=== PATIENT | female | born 1975 | race Caucasian/White ===

== ENCOUNTER → 2020-05-13 | Outpatient (CLI) | payer BC, OTHER ==
[~2020-05-13] MED LIST: ACETAMINOPHEN500 MG PO; AZO URINARY P99.5 MG PO; BACTRIM DS TAB1 EACH PO; BREO ELLIPTA 11 EACH INH; CATAPRES 0.1MG0.1 MG PO; COGENTIN 2MG TAB2 MG PO; CYMBALTA60 MG PO; DAKIN'S473 M1 MC; DESYREL 50 MG T50 MG PO; DULCOLAX5 MG PO; ELAVIL 50 MG TA50 MG PO; ELIQUIS2.5 MG PO; FLUVOXAMINE MA100 M1 PO; IBU800 MG PO; IPRAT-ALBUT 0.5-3 ML INH; KLONOPIN TAB 00.5 MG PO; LAMOTRIGINE ER200 MG PO; LASIX20 MG PO; LEVOFLOXACIN750 MG PO; MOTEGRITY2 MG PO; OMEPRAZOLE20 MG PO; OMEPRAZOLE40 MG PO; OXYCODONE HCL5 MG PO; PERCOCET 5/325 T1 EA PO; PREDNISONE20 MG PO; PYRIDIUM PO; ROPINIROLE HCL2 MG PO; SEROQUEL XR400 MG PO; TRAZODONE HCL100 MG PO; VANCOMYCIN HCL1 GM TOP; VFEND TOP; VITAMIN D350 MCG PO; ZYVOX600 MG PO; [UNRECOGNIZED DRUG - OTHER] TOP
== END ==
LOC: NM 10:14
DX: K31.84 Gastroparesis (principal)
CPT/HCPCS: 78264; A9541

== ENCOUNTER 2020-05-17 14:22 | Emergency (ER) | payer BC, OTHER ==
[~2020-05-17 14:22] MED LIST changes: -ACETAMINOPHEN500 MG PO; -AZO URINARY P99.5 MG PO; -BACTRIM DS TAB1 EACH PO; -CATAPRES 0.1MG0.1 MG PO; -COGENTIN 2MG TAB2 MG PO; -DAKIN'S473 M1 MC; -DESYREL 50 MG T50 MG PO; -FLUVOXAMINE MA100 M1 PO; -LEVOFLOXACIN750 MG PO; -MOTEGRITY2 MG PO; -OMEPRAZOLE40 MG PO; -OXYCODONE HCL5 MG PO; -PYRIDIUM PO; -VANCOMYCIN HCL1 GM TOP; -VFEND TOP; -VITAMIN D350 MCG PO; -ZYVOX600 MG PO; -[UNRECOGNIZED DRUG - OTHER] TOP
[2020-05-17 16:41] LABS: HEMOGLOBIN 14.1 gm/dl (12.3-15.3); RED BLOOD COUNT 4.7 M/UL (4.00-5.10); WHITE BLOOD COUNT 11.3 K/UL (4.5-11.0)
[2020-05-17 17:02] LABS: BUN/CREATININE RATIO 12 (0-10)
[2020-06-12] MEDS ORDERED: VITAMIN D350 MCG PO (17:00)
[2020-06-14] MEDS ORDERED: MOTEGRITY2 MG PO (16:26)
[2020-06-22] MEDS ORDERED: IBU800 MG PO (16:25)
[2020-07-02] MEDS ORDERED: BACTRIM DS TAB1 EACH PO (16:24)
== END 2020-05-17 19:50 | disposition home or self-care (01) ==
LOC: ER1 14:22
PROVIDERS: Pain Medicine Interventional Pain Medicine
DX: R10.11 Right upper quadrant pain (principal); R10.813 Right lower quadrant abdominal tenderness; F17.200 Nicotine dependence, unspecified, uncomplicated
CPT/HCPCS: 80053; 81001; 83690; 85025; 96365; 96375; 99284; J1885; J2405; Q9967

== ENCOUNTER 2020-05-19 14:07 | Observation (INO) | payer BC, OTHER ==
[~2020-05-19] VITALS: Ht 167.6 cm; Wt 118.1 kg
[2020-05-19] MEDS ORDERED: [UNRECOGNIZED DRUG - OTHER] TOP (16:31)
[2020-05-19] MEDS ORDERED: VFEND TOP (16:32)
[2020-05-19 18:03] LABS: HEMOGLOBIN 14.5 gm/dl (12.3-15.3); RED BLOOD COUNT 4.83 M/UL (4.00-5.10); WHITE BLOOD COUNT 9.6 K/UL (4.5-11.0)
[2020-05-19 18:35] LABS: BUN/CREATININE RATIO 14 (0-10)
[2020-05-19] MEDS ORDERED: FLUVOXAMINE MA100 M1 PO (23:13)
[2020-05-19] MEDS ORDERED: CATAPRES 0.1MG0.1 MG PO (23:14)
[2020-05-19] MEDS ORDERED: SEROQUEL XR400 MG PO (23:14)
[2020-05-19] MEDS ORDERED: COGENTIN 2MG TAB2 MG PO (23:14)
[2020-05-19] MEDS ORDERED: DESYREL 50 MG T50 MG PO (23:14)
[2020-05-19] MEDS ORDERED: OMEPRAZOLE40 MG PO (23:16)
[2020-05-20 04:01] LABS: HEMOGLOBIN 14.1 gm/dl (12.3-15.3); RED BLOOD COUNT 4.72 M/UL (4.00-5.10)
[2020-05-20 04:06] LABS: WHITE BLOOD COUNT 13.1 K/UL (4.5-11.0)
[2020-05-20 04:21] LABS: BUN/CREATININE RATIO 10 (0-10)
[2020-05-20] MEDS ORDERED: PERCOCET 5/325 T1 EA PO (17:06)
[2020-06-12] MEDS ORDERED: VITAMIN D350 MCG PO (17:00)
[2020-06-14] MEDS ORDERED: MOTEGRITY2 MG PO (16:26)
[2020-06-22] MEDS ORDERED: IBU800 MG PO (16:25)
[2020-07-02] MEDS ORDERED: BACTRIM DS TAB1 EACH PO (16:24)
== END 2020-05-20 18:05 | disposition home or self-care (01) ==
LOC: ER1 14:07 → ZEROF 20:25 → M/S 20:25
PROVIDERS: Physician Assistant Medical; ADMIT Surgery
DX: K35.891 Other acute appendicitis without perforation, with gangrene (principal); F41.9 Anxiety disorder, unspecified; K31.84 Gastroparesis; Z88.0 Allergy status to penicillin; Z90.710 Acquired absence of both cervix and uterus; Z79.899 Other long term (current) drug therapy
CPT/HCPCS: 36415; 80048; 80053; 81001; 83605; 83690; 85025; 87040; 87635; 96374; 96375; 99285; G0378; J1335; J1885; J2001; J2270; J2405; J2704; J2710; J3010; J7120; Q9967

== ENCOUNTER 2020-05-29 12:04 | Inpatient (IN) | payer BC, OTHER ==
[~2020-05-29] VITALS: Ht 167.6 cm; Wt 114.3 kg
[~2020-05-29 12:04] MED LIST changes: +CATAPRES 0.1MG0.1 MG PO; +COGENTIN 2MG TAB2 MG PO; +DESYREL 50 MG T50 MG PO; +FLUVOXAMINE MA100 M1 PO; +OMEPRAZOLE40 MG PO; +VFEND TOP; +[UNRECOGNIZED DRUG - OTHER] TOP
[2020-05-29 14:01] LABS: HEMOGLOBIN 11.4 gm/dl (12.3-15.3); RED BLOOD COUNT 3.89 M/UL (4.00-5.10); WHITE BLOOD COUNT 16.2 K/UL (4.5-11.0)
[2020-05-29 14:16] LABS: BUN/CREATININE RATIO 11 (0-10)
[2020-05-29] MEDS ORDERED: PERCOCET 5/325 T1 EA PO (16:55)
[2020-05-29] MEDS ORDERED: FLUVOXAMINE MA100 M1 PO (16:55)
[2020-05-29 17:23] LABS: RED BLOOD COUNT 4.09 M/UL (4.00-5.10); WHITE BLOOD COUNT 15.7 K/UL (4.5-11.0)
[2020-05-31 13:26] LABS: HEMOGLOBIN 11.7 gm/dl (12.3-15.3); RED BLOOD COUNT 4.03 M/UL (4.00-5.10); WHITE BLOOD COUNT 18.2 K/UL (4.5-11.0)
[2020-05-31 13:50] LABS: BUN/CREATININE RATIO 7 (0-10)
[2020-06-01 09:31] LABS: HEMOGLOBIN 11.4 gm/dl (12.3-15.3); RED BLOOD COUNT 3.89 M/UL (4.00-5.10); WHITE BLOOD COUNT 14.3 K/UL (4.5-11.0)
[2020-06-01 09:47] LABS: BUN/CREATININE RATIO 7 (0-10)
[2020-06-02 10:30] LABS: RED BLOOD COUNT 3.81 M/UL (4.00-5.10)
[2020-06-02 10:31] LABS: WHITE BLOOD COUNT 9.8 K/UL (4.5-11.0)
[2020-06-02 10:58] LABS: BUN/CREATININE RATIO 15 (0-10)
[2020-06-03] MEDS ORDERED: ZYVOX600 MG PO (10:49)
[2020-06-04] MEDS ORDERED: PYRIDIUM PO (11:06)
[2020-06-12] MEDS ORDERED: VITAMIN D350 MCG PO (17:00)
[2020-06-14] MEDS ORDERED: MOTEGRITY2 MG PO (16:26)
[2020-06-22] MEDS ORDERED: IBU800 MG PO (16:25)
[2020-07-02] MEDS ORDERED: BACTRIM DS TAB1 EACH PO (16:24)
== END 2020-06-05 12:41 | disposition home or self-care (01) | DRG 919 ==
LOC: ER1 12:04 → CDU 15:30 → MED SURG 4 17:50
PROVIDERS: Physician Assistant Medical; Surgery; ADMIT Surgery
PROC: 0W9J30Z Drainage of Pelvic Cavity with Drainage Device, Percutaneous Approach (ICD-10-PCS; principal; 2020-05-29)
DX: T81.89XA Other complications of procedures, not elsewhere classified, initial encounter (principal); K65.1 Peritoneal abscess; Z68.41 Body mass index [BMI] 40.0-44.9, adult; E66.01 Morbid (severe) obesity due to excess calories; R30.0 Dysuria; Z20.822 Contact with and (suspected) exposure to COVID-19; B37.3 Candidiasis of vulva and vagina; Z90.710 Acquired absence of both cervix and uterus; Z88.0 Allergy status to penicillin; Z88.7 Allergy status to serum and vaccine; Z88.8 Allergy status to other drugs, medicaments and biological substances
CPT/HCPCS: 36415; 72193; 80048; 80053; 81001; 83605; 83690; 83735; 85025; 85027; 87040; 87070; 87075; 87077; 87186; 87205; 96374; 96375; 96376; 99285; G0378; J1335; J1650; J1885; J2270; J2405; J3480; J7030; Q9967; U0002

== ENCOUNTER → 2020-06-27 | Outpatient (CLI) | payer BC, OTHER ==
[~2020-06-27] MED LIST changes: +ACETAMINOPHEN500 MG PO; +AZO URINARY P99.5 MG PO; +BACTRIM DS TAB1 EACH PO; +DAKIN'S473 M1 MC; +LEVOFLOXACIN750 MG PO; +MOTEGRITY2 MG PO; +OXYCODONE HCL5 MG PO; +PYRIDIUM PO; +VANCOMYCIN HCL1 GM TOP; +VITAMIN D350 MCG PO; +ZYVOX600 MG PO
== END ==
LOC: CT 07:02
DX: N73.9 Female pelvic inflammatory disease, unspecified (principal); R19.8 Other specified symptoms and signs involving the digestive system and abdomen
CPT/HCPCS: Q9967

== ENCOUNTER 2020-07-03 12:06 | Inpatient (IN) | payer BC, OTHER ==
[~2020-07-03] VITALS: Ht 167.6 cm; Wt 108.0 kg
[~2020-07-03 12:06] MED LIST changes: -ACETAMINOPHEN500 MG PO; -AZO URINARY P99.5 MG PO; -DAKIN'S473 M1 MC; -LEVOFLOXACIN750 MG PO; -OXYCODONE HCL5 MG PO; -VANCOMYCIN HCL1 GM TOP
[2020-07-03 12:52] LABS: HEMOGLOBIN 10.6 gm/dl (12.3-15.3); RED BLOOD COUNT 3.9 M/UL (4.00-5.10); WHITE BLOOD COUNT 13.4 K/UL (4.5-11.0)
[2020-07-03 13:18] LABS: BUN/CREATININE RATIO 15 (0-10)
[2020-07-03] MEDS ORDERED: AZO URINARY P99.5 MG PO (16:29)
[2020-07-03] MEDS ORDERED: VANCOMYCIN HCL1 GM TOP (16:31)
[2020-07-04 03:31] LABS: HEMOGLOBIN 9.1 gm/dl (12.3-15.3); WHITE BLOOD COUNT 13.9 K/UL (4.5-11.0)
[2020-07-04 03:36] LABS: RED BLOOD COUNT 3.37 M/UL (4.00-5.10)
[2020-07-04 03:48] LABS: BUN/CREATININE RATIO 13 (0-10)
--- NOTE | 2020-07-04 14:51 | NUR ---
PT OXYGEN LEVEL DROPPED TO 80% WHILE SLEEPING PER TELE. DR. DOMÍNGUEZ AWARE. TM.
[2020-07-05 05:14] LABS: HEMOGLOBIN 8.9 gm/dl (12.3-15.3); RED BLOOD COUNT 3.39 M/UL (4.00-5.10); WHITE BLOOD COUNT 10.5 K/UL (4.5-11.0)
[2020-07-05 05:30] LABS: BUN/CREATININE RATIO 17 (0-10)
[2020-07-06] MEDS ORDERED: ACETAMINOPHEN500 MG PO (14:51)
[2020-07-06] MEDS ORDERED: OXYCODONE HCL5 MG PO (14:51)
[2020-07-06] MEDS ORDERED: ZYVOX600 MG PO (14:53)
[2020-07-06] MEDS ORDERED: DAKIN'S473 M1 MC (14:53)
[2020-07-06] MEDS ORDERED: LEVOFLOXACIN750 MG PO (15:37)
--- NOTE | 2020-07-06 16:54 | NUR ---
ABDOMINAL DRESSING CHANGED PER AFTER PT TOOK SHOWER. DRESSING SUPPLIES SENT HOME WITH PT.
== END 2020-07-06 16:57 | disposition home or self-care (01) | DRG 854 ==
LOC: ER1 12:06 → CDU 14:45 → M/S 14:45
PROVIDERS: Emergency Medicine; Physician Assistant Medical; Surgery Trauma Surgery; ADMIT Internal Medicine
PROC: 0J980ZZ Drainage of Abdomen Subcutaneous Tissue and Fascia, Open Approach (ICD-10-PCS; principal; 2020-07-03 17:25)
DX: A41.81 Sepsis due to Enterococcus (principal); K63.2 Fistula of intestine; E87.2 Acidosis; K65.4 Sclerosing mesenteritis; E87.1 Hypo-osmolality and hyponatremia; I96 Gangrene, not elsewhere classified; F17.210 Nicotine dependence, cigarettes, uncomplicated; D64.9 Anemia, unspecified; Z20.822 Contact with and (suspected) exposure to COVID-19; J45.909 Unspecified asthma, uncomplicated; Z88.1 Allergy status to other antibiotic agents; Z90.49 Acquired absence of other specified parts of digestive tract; Z88.0 Allergy status to penicillin; Z88.7 Allergy status to serum and vaccine; I25.2 Old myocardial infarction; Z98.890 Other specified postprocedural states; K31.84 Gastroparesis; Z82.49 Family history of ischemic heart disease and other diseases of the circulatory system
CPT/HCPCS: 36415; 71045; 80048; 80053; 80202; 81001; 82550; 82553; 83605; 83690; 83735; 83874; 84484; 85025; 85027; 87040; 87070; 87077; 87186; 87205; 87635; 93005; 96374; 96375; 96376; 99285; J1100; J2001; J2185; J2250; J2270; J2370; J2405; J2704; J3010; J3370; J7030; J7070; J7120; Q9967

== ENCOUNTER 2020-07-27 16:36 | Emergency (ER) | payer BC, OTHER ==
[~2020-07-27 16:36] MED LIST changes: +ACETAMINOPHEN500 MG PO; +AZO URINARY P99.5 MG PO; +DAKIN'S473 M1 MC; +LEVOFLOXACIN750 MG PO; +OXYCODONE HCL5 MG PO; +VANCOMYCIN HCL1 GM TOP
[2020-07-27 17:39] LABS: HEMOGLOBIN 12.1 gm/dl (12.3-15.3); RED BLOOD COUNT 4.48 M/UL (4.00-5.10); WHITE BLOOD COUNT 9.7 K/UL (4.5-11.0)
[2020-07-27 17:54] LABS: BUN/CREATININE RATIO 13 (0-10)
== END 2020-07-27 21:20 | disposition home or self-care (01) ==
LOC: ER1 16:36
PROVIDERS: Student in an Organized Health Care Education/Training Program
DX: R10.33 Periumbilical pain (principal); F17.210 Nicotine dependence, cigarettes, uncomplicated; J45.909 Unspecified asthma, uncomplicated; Z88.0 Allergy status to penicillin; Z88.2 Allergy status to sulfonamides; Z91.040 Latex allergy status
CPT/HCPCS: 80053; 81001; 83605; 83690; 83735; 84100; 84703; 85025; 85652; 86140; 96374; 96375; 96376; 99284; J2270; J2405; Q9967

== ENCOUNTER → 2021-01-28 | Outpatient (CLI) | payer OTHER | LOC: CT 09:01 | DX: R10.9 Unspecified abdominal pain (principal) | CPT/HCPCS: 36415; 82565; Q9967 ==

== ENCOUNTER 2021-02-22 22:17 | Emergency (ER) | payer OTHER ==
[2021-02-22 23:05] LABS: BUN/CREATININE RATIO 14 (0-10)
[2021-02-22 23:33] LABS: HEMOGLOBIN 14.5 gm/dl (12.3-15.3); RED BLOOD COUNT 4.73 M/UL (4.00-5.10); WHITE BLOOD COUNT 12.5 K/UL (4.5-11.0)
[2021-02-23] MEDS ORDERED: CYCLOBENZAPRINE10 MG PO (00:31)
[2021-02-23] MEDS ORDERED: ZOFRAN ODT 4 MG4 MG PO (00:31)
== END 2021-02-23 00:50 | disposition home or self-care (01) ==
LOC: ER1 22:17
PROVIDERS: Family Medicine
DX: R10.9 Unspecified abdominal pain (principal); F17.200 Nicotine dependence, unspecified, uncomplicated; R11.0 Nausea; Z90.710 Acquired absence of both cervix and uterus; Z79.899 Other long term (current) drug therapy; Z88.0 Allergy status to penicillin
CPT/HCPCS: 74019; 80053; 81001; 83605; 83690; 85025; 96374; 96375; 99284; J1885; J2405